=== PATIENT | male | born 1965 | race Hispanic/Latino ===

== ENCOUNTER 2016-11-27 09:24 | Emergency (ER) | payer OTHER ==
[~2016-11-27] VITALS: Ht 160 cm; Wt 72.6 kg
[~2016-11-27 09:24] MED LIST: AMLODIPINE10 MG PO; CYCLOBENZAPRINE10 M1 PO; FLEXERIL10 MG PO; LISINOPRIL40 MG PO; LOPRESSOR 25MG25 MG PO; MOBIC15 M1 PO; VICODIN5-300 PO; ZOCOR 10MG TAB10 MG PO
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
[2016-11-27] MEDS ORDERED: NAPROSYN500 M1 PO (10:51)
[2016-11-27] MEDS ORDERED: CYCLOBENZAPRINE5 M2 PO (10:51)
[2016-11-27 10:56] VITALS: BP 138/70
== END 2016-11-27 10:57 ==
LOC: ERH 09:24
DX: M43.6 Torticollis (principal)

== ENCOUNTER 2017-04-22 15:49 | Emergency (ER) | payer OTHER ==
[~2017-04-22] VITALS: Ht 162.6 cm; Wt 68.0 kg
[~2017-04-22 15:49] MED LIST changes: +CYCLOBENZAPRINE5 M2 PO; +NAPROSYN500 M1 PO
[2017-04-22] MEDS ORDERED: IBUPROFEN800 M1 PO (17:31)
[2017-04-22] MEDS ORDERED: HYDROCODON-ACE1 EAC2 PO (17:31)
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
[2017-04-22 18:02] VITALS: BP 143/85
== END 2017-04-22 18:03 ==
LOC: ERH 15:49
DX: S46.911A Strain of unspecified muscle, fascia and tendon at shoulder and upper arm level, right arm, initial encounter (principal); X58.XXXA Exposure to other specified factors, initial encounter